=== PATIENT | female | born 1945 | race Caucasian/White ===

== ENCOUNTER → 2017-01-22 | Outpatient (CLI) | payer MEDICARE, BC ==
[~2017-01-22] MED LIST: ASA325 MG PO; ASPIR 8181 MG PO; ATORVASTATIN CA80 MG PO; CELEBREX200 MG PO; COLACE-DPS100 MG PO; FENOFIBRATE54 MG PO; FLEXERIL DPS5 MG PO; LEVOTHYROXINE50 MCG PO; MIRALAX PACKET17 GM PO; OXY IR DPS5 MG PO; PROTONIX40 MG PO; TYLENOL DPS325 MG PO; ULTRAM DPS50 MG PO; ZESTRIL DPS10 MG PO
== END | disposition home or self-care (01) ==
LOC: PTH.S 09:52
DX: Z01.818 Encounter for other preprocedural examination (principal)